=== PATIENT | male | born 1955 | race Caucasian/White ===

== ENCOUNTER 2023-05-24 06:03 | Inpatient (IN) | payer MEDICARE ==
--- NOTE | 2023-05-24 06:38 | ED ---
SOB HPI - General Source: patient, RN notes reviewed Mode of arrival: ambulatory Limitations: no limitations - History of Present Illness MD Complaint: shortness of breath Onset/Timin -: week(s) <Bianca Montenegro - Last Filed: 05/24/23 06:38> <Fabian Viera - Last Filed: 05/24/23 10:41> - General Chief Complaint: Shortness of Breath Stated Complaint: Difficulty breathing Time Seen by Provider: 05/24/23 06:36 - History of Present Illness Initial Comments: This is a 68 year old male who presents to the emergency department for shortness of breath. Reports a history of COPD and states that this began about a week ago. Denies any chest pain. He notes that he has been under a lot of stress recently, and he just buried his twin yesterday. (Bianca Montenegro) This is a 68-year-old male who presents emergency department with past medical history significant for smoking. Patient states he has been diagnosed with COPD in the past. Patient comes in today because he states he's been having diff iculty breathing that happened last night one time it lasted about 10 minutes and finally settled down and felt better. Patient states in the middle the night he woke up very short of breath or difficulty 20 minutes to settle down and resolved. Patient states she's not had this issue in the past. Patient denies any chest pain. Patient denies any back pain. Patient states she does have some super pubic pressure which she states is new in the last 2 days. Patient denies any nausea vomiting diarrhea. Patient denies any fevers or chills. Patient denies any other symptoms at this time. (Fabian Viera) - Related Data Home Medications Medication Instructions Recorded Confirmed Albuterol Sulfate [Albuterol 1 - 2 puff PO RT-Q6H PRN 05/24/23 05/24/23 Sulfate Hfa] Ibuprofen [Motrin Ib] 1,200 - 1,600 mg PO BID PRN 05/24/23 05/24/23 Tamsulosin [Flomax] 0.4 mg PO DAILY PRN 05/24/23 05/24/23 Allergies Allergy/AdvReac Type Severity Reaction Status Date / Time No Known Allergies Allergy Verified 05/24/23 08:56 Review of Systems ROS Other: All systems not noted in ROS Statement are negative. <Bianca Montenegro - Last Filed: 05/24/23 06:38> ROS Other: All systems not noted in ROS Statement are negative. <Fabian Viera - Last Filed: 05/24/23 10:41> ROS Statement: Those systems with pertinent positive or pertinent negative responses have been documented in the HPI. Past Medical History Past Medical History: COPD History of Any Multi-Drug Resistant Organisms: None Reported Past Surgical History: No Surgical Hx Reported Past Psychological History: No Psychological Hx Reported Smoking Status: Current every day smoker Past Alcohol Use History: None Reported Past Drug Use History: None Reported <Bianca Montenegro - Last Filed: 05/24/23 06:38> General Exam Limitations: no limitations <Bianca Montenegro - Last Filed: 05/24/23 06:38> <Fabian Viera - Last Filed: 05/24/23 10:41> - General Exam Comments Initial Comments: Visual Physical Exam Vital signs reviewed General: Well-appearing, nontoxic, no acute distress. Head: Normocephalic, atraumatic Eyes: PERRLA, EOMI ENT: Airway patent Chest: Nonlabored breathing Skin: No visual rash, normal skin tone Neuro: Alert and oriented 3 Musculoskeletal: No gross abnormalities (Bianca Montenegro) GENERAL: Patient is well-developed and well-nourished. Patient is nontoxic and well- hydrated and is in no acute distress. ENT: Neck is soft and supple. No significant lymphadenopathy is noted. Oropharynx is clear. Moist mucous membranes. Neck has full range of motion without eliciting any pain. EYES: The sclera were anicteric and conjunctiva were pink and moist. Extraocular movements were intact and pupils were equal round and reactive to light. Eyelids were unremarkable. PULMONARY: Unlabored respirations. Good breath sounds bilaterally. No audible rales rhonchi or wheezing was noted. CARDIOVASCULAR: There is a regular rate and rhythm without any murmurs gallops or rubs. Femoral pulses are equal bilaterally ABDOMEN: Mild suprapubic fullness and tenderness SKIN: Skin is clear with no lesions or rashes and otherwise unremarkable. NEUROLOGIC: Patient is alert and oriented x3. Cranial nerves II through XII are grossly intact. Motor and sensory are also intact. Normal speech, volume and content. Symmetrical smile. MUSCULOSKELETAL: Normal extremities with adequate strength and full range of motion. No lower extremity swelling or edema. No calf tenderness. LYMPHATICS: No significant lymphadenopathy is noted PSYCHIATRIC: Normal psychiatric evaluation. (Fabian Viera) Course Vital Signs 05/24/23 05/24/23 06:16 09:03 Temperature 97.8 F Pulse Rate 95 Respiratory 20 20 Rate Blood Pressure 139/89 O2 Sat by Pulse 95 Oximetry Medical Decision Making <Bianca Montenegro - Last Filed: 05/24/23 06:38> - Lab Data Result diagrams: 05/24/23 06:27 05/24/23 06:27 <Fabian Viera - Last Filed: 05/24/23 10:41> - Medical Decision Making I performed the QuickNote portion of this chart. Signed Bianca Montenegro PA-C. (Bianca Montenegro) EKG is interpreted by myself EKG shows sinus tachycardia with multiple PVCs at 100 bpm TN interval 112 QRS is 115 QT interval 3492 QTC is 406. Patient's EKG shows no ST segment elevation or depression. Was pt. sent in by a medical professional or institution (IRENE Tompkins, NETWORK SECURITY OFFICER, urgent care, hospital, or senior care...) When possible be specific @ -[No] Did you speak to anyone other than the patient for history (EMS, parent, family, police, friend...)? What history was obtained from this source @ -[No] Did you review nursing and triage notes (agree or disagree)? Why? @ -[I reviewed and agree with nursing and triage notes] Were old charts reviewed (outside hosp., previous admission, EMS record, old E KG, old radiological studies, urgent care reports/EKG's, senior care records)? Report findings @ -No Differential Diagnosis (chest pain, altered mental status, abdominal pain women, abdominal pain men, vaginal bleeding, weakness, fever, dyspnea, syncope, heada aleshia, dizziness, GI bleed, back pain, seizure, CVA, palpatations, mental health, musculoskeletal)? @ -Differential Dyspnea: Coronary syndrome, arrhythmia, tamponade, asthma, COPD, pulmonary embolism, pneumonia, pneumothorax, pulmonary effusion, anaphylaxis, diabetic ketoacidosis, flailed chest, pulmonary contusion, diaphragmatic rupture, anemia, neuromuscular, this is not meant to be an all-inclusive list. EKG interpreted by me (3pts min.). @ -[As above] X-rays interpreted by me (1pt min.). @ -Chest x-ray shows COPD with some pulmonary edema CT interpreted by me (1pt min.). @ -[None done] U/S interpreted by me (1pt. min.). @ -[None done] What testing was considered but not performed or refused? (CT, X-rays, U/S, labs)? Why? @ -[None] What meds were considered but not given or refused? Why? @ -[None] Did you discuss the management of the patient with other professionals (professionals i.e. , PA, NETWORK SECURITY OFFICER, lab, RT, psych nurse, social work instructor, sweet potato disintegrator, teacher, infantry officer, shelter case manager)? Give summary @ -Jansen with Dr. Roman he agreed to admit the patient admitted the patient wrote admitting orders Was smoking cessation discussed for >3mins.? @ -[No] Was critical care preformed (if so, how long)? @ -[No] Were there social determinants of health that impacted care today? How? (Homelessness, low income, unemployed, alcoholism, drug addiction, transportation, low edu. Level, literacy, decrease access to med. care, half-way, rehab)? @ -[No] Was there de-escalation of care discussed even if they declined (Discuss DNR or withdrawal of care, Hospice)? DNR status @ -[No] What co-morbidities impacted this encounter? (DM, HTN, Smoking, COPD, CAD, Cancer, CVA, ARF, Chemo, Hep., AIDS, mental health diagnosis, sleep apnea, morbid obesity)? @ -[None] Was patient admitted / discharged? Hospital course, mention meds given and route, prescriptions, significant lab abnormalities, going to OR and other pertinent info. @ -Patient had pulmonary edema and occasional run of PVCs and because this was all new from the patient will be admitted to Dr. Roman with a consult to card iology . Patient was started on Lasix in the emergency department. Undiagnosed new problem with uncertain prognosis? @ -[No] Drug Therapy requiring intensive monitoring for toxicity (Heparin, Nitro, Insulin, Cardizem)? @ -[No] Were any procedures done? @ -[No] Diagnosis/symptom? @ -Acute pulmonary edema Acute, or Chronic, or Acute on Chronic? @ -Acute Uncomplicated (without systemic symptoms) or Complicated (systemic symptoms)? @ -Complicated Side effects of treatment? @ -[No] Exacerbation, Progression, or Severe Exacerbation? @ -[No] Poses a threat to life or bodily function? How? (Chest pain, [place], [place], pneumonia, PE, COPD, DKA, ARF, appy, cholecystitis, CVA, Diverticulitis, Homicidal, Suicidal, threat to staff... and all critical care pts) @ -Yes this can lead to hypoxia and underlying dysfunction (Fabian Viera) - Lab Data Lab Results 05/24/23 05/24/23 05/24/23 Range/Units 06:27 06:27 06:27 WBC 9.0 (3.8-10.6) k/uL RBC 3.57 L (4.30-5.90) m/uL Hgb 11.4 L (13.0-17.5) gm/dL Hct 34.2 L (39.0-53.0) % MCV 95.8 (80.0-100.0) fL MCH 31.9 (25.0-35.0) pg MCHC 33.3 (31.0-37.0) g/dL RDW 13.2 (11.5-15.5) % Plt Count 222 (150-450) k/uL MPV 8.2 Neutrophils % 80 % Lymphocytes % 12 % Monocytes % 5 % Eosinophils % 1 % Basophils % 0 % Neutrophils # 7.2 (1.3-7.7) k/uL Lymphocytes # 1.1 (1.0-4.8) k/uL Monocytes # 0.5 (0-1.0) k/uL Eosinophils # 0.1 (0-0.7) k/uL Basophils # 0.0 (0-0.2) k/uL PT 11.1 (10.0-12.5) sec INR 1.0 (<1.2) APTT 22.5 (22.0-30.0) sec Sodium 137 (137-145) mmol/L Potassium 3.8 (3.5-5.1) mmol/L Chloride 105 (98-107) mmol/L Carbon Dioxide 26 (22-30) mmol/L Anion Gap 6 mmol/L BUN 19 (9-20) mg/dL Creatinine 0.95 (0.66-1.25) mg/dL Est GFR (CKD-EPI)AfAm >90 (>60 ml/min/1.73 sqM) Est GFR (CKD-EPI)NonAf 83 (>60 ml/min/1.73 sqM) Glucose 111 H (74-99) mg/dL Plasma Lactic Acid Farhat (0.7-2.0) mmol/L Calcium 9.1 (8.4-10.2) mg/dL Total Bilirubin 0.6 (0.2-1.3) mg/dL AST 36 (17-59) U/L ALT 31 (4-49) U/L Alkaline Phosphatase 60 (38-126) U/L Troponin I (0.000-0.034) ng/mL NT-Pro-B Natriuret Pep pg/mL Total Protein 6.1 L (6.3-8.2) g/dL Albumin 3.6 (3.5-5.0) g/dL Urine Color Urine Appearance (Clear) Urine pH (5.0-8.0) Ur Specific [place] (1.001-1.035) Urine Protein (Negative) Urine Glucose (UA) (Negative) Urine Ketones (Negative) Urine Blood (Negative) Urine Nitrite (Negative) Urine Bilirubin (Negative) Urine Urobilinogen (<2.0) mg/dL Ur Leukocyte Esterase (Negative) Influenza Type A (PCR) (Not Detectd) Influenza Type B (PCR) (Not Detectd) RSV (PCR) (Not Detectd) SARS-CoV-2 (PCR) (Not Detectd) 05/24/23 05/24/23 05/24/23 Range/Units 06:27 06:27 06:27 WBC (3.8-10.6) k/uL RBC (4.30-5.90) m/uL Hgb (13.0-17.5) gm/dL Hct (39.0-53.0) % MCV (80.0-100.0) fL MCH (25.0-35.0) pg MCHC (31.0-37.0) g/dL RDW (11.5-15.5) % Plt Count (150-450) k/uL MPV Neutrophils % % Lymphocytes % % Monocytes % % Eosinophils % % Basophils % % Neutrophils # (1.3-7.7) k/uL Lymphocytes # (1.0-4.8) k/uL Monocytes # (0-1.0) k/uL Eosinophils # (0-0.7) k/uL Basophils # (0-0.2) k/uL PT (10.0-12.5) sec INR (<1.2) APTT (22.0-30.0) sec Sodium (137-145) mmol/L Potassium (3.5-5.1) mmol/L Chloride (98-107) mmol/L Carbon Dioxide (22-30) mmol/L Anion Gap mmol/L BUN (9-20) mg/dL Creatinine (0.66-1.25) mg/dL Est GFR (CKD-EPI)AfAm (>60 ml/min/1.73 sqM) Est GFR (CKD-EPI)NonAf (>60 ml/min/1.73 sqM) Glucose (74-99) mg/dL Plasma Lactic Acid Farhat 1.4 (0.7-2.0) mmol/L Calcium (8.4-10.2) mg/dL Total Bilirubin (0.2-1.3) mg/dL AST (17-59) U/L ALT (4-49) U/L Alkaline Phosphatase (38-126) U/L Troponin I 0.033 (0.000-0.034) ng/mL NT-Pro-B Natriuret Pep pg/mL Total Protein (6.3-8.2) g/dL Albumin (3.5-5.0) g/dL Urine Color Urine Appearance (Clear) Urine pH (5.0-8.0) Ur Specific [place] (1.001-1.035) Urine Protein (Negative) Urine Glucose (UA) (Negative) Urine Ketones (Negative) Urine Blood (Negative) Urine Nitrite (Negative) Urine Bilirubin (Negative) Urine Urobilinogen (<2.0) mg/dL Ur Leukocyte Esterase (Negative) Influenza Type A (PCR) Not Detected (Not Detectd) Influenza Type B (PCR) Not Detected (Not Detectd) RSV (PCR) Not Detected (Not Detectd) SARS-CoV-2 (PCR) Not Detected (Not Detectd) 05/24/23 05/24/23 Range/Units 06:27 09:01 WBC (3.8-10.6) k/uL RBC (4.30-5.90) m/uL Hgb (13.0-17.5) gm/dL Hct (39.0-53.0) % MCV (80.0-100.0) fL MCH (25.0-35.0) pg MCHC (31.0-37.0) g/dL RDW (11.5-15.5) % Plt Count (150-450) k/uL MPV Neutrophils % % Lymphocytes % % Monocytes % % Eosinophils % % Basophils % % Neutrophils # (1.3-7.7) k/uL Lymphocytes # (1.0-4.8) k/uL Monocytes # (0-1.0) k/uL Eosinophils # (0-0.7) k/uL Basophils # (0-0.2) k/uL PT (10.0-12.5) sec INR (<1.2) APTT (22.0-30.0) sec Sodium (137-145) mmol/L Potassium (3.5-5.1) mmol/L Chloride (98-107) mmol/L Carbon Dioxide (22-30) mmol/L Anion Gap mmol/L BUN (9-20) mg/dL Creatinine (0.66-1.25) mg/dL Est GFR (CKD-EPI)AfAm (>60 ml/min/1.73 sqM) Est GFR (CKD-EPI)NonAf (>60 ml/min/1.73 sqM) Glucose (74-99) mg/dL Plasma Lactic Acid [place] (0.7-2.0) mmol/L Calcium (8.4-10.2) mg/dL Total Bilirubin (0.2-1.3) mg/dL AST (17-59) U/L ALT (4-49) U/L Alkaline Phosphatase (38-126) U/L Troponin I (0.000-0.034) ng/mL NT-Pro-B Natriuret Pep 2540 pg/mL Total Protein (6.3-8.2) g/dL Albumin (3.5-5.0) g/dL Urine Color Colorless Urine Appearance Clear (Clear) Urine pH 6.0 (5.0-8.0) Ur Specific [place] 1.010 (1.001-1.035) Urine Protein Negative (Negative) Urine Glucose (UA) Negative (Negative) Urine Ketones Negative (Negative) Urine Blood Negative (Negative) Urine Nitrite Negative (Negative) Urine Bilirubin Negative (Negative) Urine Urobilinogen <2.0 (<2.0) mg/dL Ur Leukocyte Esterase Negative (Negative) Influenza Type A (PCR) (Not Detectd) Influenza Type B (PCR) (Not Detectd) RSV (PCR) (Not Detectd) SARS-CoV-2 (PCR) (Not Detectd) Disposition <Bianca Montenegro - Last Filed: 05/24/23 06:38> Time of Disposition: 10:41 <Fabian Viera - Last Filed: 05/24/23 10:41> Clinical Impression: Acute pulmonary edema Disposition: ADMITTED IP TO THIS HOSP Referrals: None,Stated [Primary Care Provider] - 1-2 days
[2023-05-24 06:46] LABS: Basophils % (A) 0 %; Eosinophils # (A) 0.1 k/uL (0-0.7); Eosinophils % (A) 1 %; HCT 34.2 % (39.0-53.0); HGB 11.4 gm/dL (13.0-17.5); Lymphocytes # (A) 1.1 k/uL (1.0-4.8); Lymphocytes % (A) 12 %; MCH 31.9 pg (25.0-35.0); MCHC 33.3 g/dL (31.0-37.0); MCV 95.8 fL (80.0-100.0); Mean Platelet Volume 8.2; Monocytes # (A) 0.5 k/uL (0-1.0); Monocytes % (A) 5 %; Neutrophils # (A) 7.2 k/uL (1.3-7.7); Neutrophils % (A) 80 %; Platelet Count 222 k/uL (150-450); RBC 3.57 m/uL (4.30-5.90); RDW 13.2 % (11.5-15.5)
[2023-05-24 07:05] LABS: ALT 31 U/L (4-49); AST 36 U/L (17-59); African American GFR (CKD) >90 (>60 ml/min/1.73 sqM); Albumin 3.6 g/dL (3.5-5.0); Alkaline Phosphatase 60 U/L (38-126); Anion Gap 6 mmol/L; Blood Urea Nitrogen 19 mg/dL (9-20); Calcium 9.1 mg/dL (8.4-10.2); Carbon Dioxide 26 mmol/L (22-30); Chloride 105 mmol/L (98-107); Glucose 111 mg/dL (74-99); Non-African American GFR(CKD) 83 (>60 ml/min/1.73 sqM); Partial Thromboplastin Time 22.5 sec (22.0-30.0); Potassium 3.8 mmol/L (3.5-5.1); Prothrombin Time 11.1 sec (10.0-12.5); Sodium 137 mmol/L (137-145); Total Bilirubin 0.6 mg/dL (0.2-1.3); Total Protein 6.1 g/dL (6.3-8.2)
--- NOTE | 2023-05-24 07:49 | XR ---
EXAMINATION TYPE: XR chest 2V DATE OF EXAM: 05/24/2023 COMPARISON: None HISTORY: 68 year-old male shortness of breath, difficulty breathing TECHNIQUE: PA and lateral views FINDINGS: Heart mildly enlarged. Diffuse interstitial density. Nely B lines noted at the periphery of the bra in base. Trace pleural effusion developing. No irena consolidation. Hyperinflation. IMPRESSION: COPD with superimposed CHF and early interstitial pulmonary edema. Trace effusions.
[2023-05-24] MEDS ORDERED: FUROSEMIDE 10 MG/ML 2 ML VIAL IV ONE (08:41)
[2023-05-24 10:00] LABS: Appearance,Urine Clear (Clear); Bilirubin,Urine Negative (Negative); Blood,Urine Negative (Negative); Color,Urine Colorless; Glucose,Urine (UA) Negative (Negative); Ketones,Urine Negative (Negative); Leukocyte Esterase,Urine Negative (Negative); Nitrite,Urine Negative (Negative); Protein,Urine Negative (Negative); Urobilinogen,Urine <2.0 mg/dL (<2.0)
[2023-05-24] MEDS ORDERED: NITROGLYCERIN OINT 1 INCH/GM PACKET TOPICAL STA (10:44)
[2023-05-24] MEDS: FUROSEMIDE 10 MG/ML 4 ML VIAL IV SCH ×2 (10:48→21:38)
[2023-05-24] MEDS: NITROGLYCERIN OINT 1 INCH/GM PACKET TOPICAL SCH ×3 (11:02→23:31)
[2023-05-24] MEDS ORDERED: TAMSULOSIN 0.4 MG CAP.ER.24H PO PRN (18:22)
[2023-05-24] MEDS ORDERED: HEPARIN SODIUM 1,000 UN/ML (10ML VL) IV PRN (21:16)
[2023-05-24] MEDS ORDERED: HEPARIN SODIUM 1,000 UN/ML (10ML VL) IV ONE (21:16)
[2023-05-24] MEDS ORDERED: DILTIAZEM DRIP BOLUS FROM BAG 1 MG SOLN IV ONE (21:30)
[2023-05-24] MEDS: DILTIAZEM 125 MG in SODIUM CHLORIDE 0.9% 100 ML IV SCH (21:37)
[2023-05-24] MEDS ORDERED: HEPARIN SOD,PORK IN 0.45% NACL 25,000 UNIT in 0.45% NACL 1 250ML.BAG IV SCH (22:00)
[2023-05-24] MEDS: IPRATROPIUM-ALBUTEROL 3 ML NEB INHALATION SCH (22:18)
--- NOTE | 2023-05-25 01:43 | CT ---
EXAM: CT Chest Without Intravenous Contrast CLINICAL HISTORY: ITS.REASON CT Reason: pleural effusion TECHNIQUE: Axial computed tomography images of the chest without intravenous contrast. CTDI is 23.32 mGy and DLP is 818.86 mGy-cm. This CT exam was performed using one or more of the following dose reduction techniques: automated exposure control, adjustment of the mA and/or kV according to patient size, and/or use of iterative reconstruction technique. COMPARISON: No relevant prior studies available. FINDINGS: Lungs: No mass. No consolidation. Minimal pulmonary edema. COPD. Pleural space: No pneumothorax. Mild to moderate bilateral effusion. Heart: Normal heart size. No pericardial effusion. Bones/joints: No acute fracture. Soft tissues: Unremarkable. Vasculature: Unremarkable. No thoracic aortic aneurysm. Lymph nodes: No enlarged lymph nodes. Mildly nodular liver. Multiple vascular calcifications in the kidneys. Trace ascites. IMPRESSION: Mild to moderate bilateral pleural effusions. Minimal pulmonary edema. COPD. Mildly nodular liver. Multiple vascular calcifications in the kidneys. Trace ascites.
--- NOTE | 2023-05-25 05:10 | HP ---
HISTORY AND PHYSICAL HISTORY OF PRESENT ILLNESS: This 68-year-old white male came to the ER for shortness of breath. We are going to work him up for COPD exacerbation, tracheobronchitis versus yesterday, had shortness of breath, cough, congestion over the past few days, difficulty breathing last night, woke up very short of breath, 20 minutes to slow down and resolve. Did not have any chest pain back pain. Denies any nausea, vomiting, or diarrhea. Denies any fever or chills. He is negative for COVID, negative for flu, negative for RSV. HOME MEDICATIONS: Include Flomax, albuterol, and Motrin. ALLERGIES: Negative. REVIEW OF SYSTEMS: A 14-point review of systems positive for shortness of breath, cough, congestion. PAST MEDICAL HISTORY: COPD. SOCIAL HISTORY: Current everyday smoker. PHYSICAL EXAMINATION: VITAL SIGNS: Reviewed. Blood pressure 139/89, pulse 95, respiratory rate 18 to 20, temperature 97.8. GENERAL: Well developed, well nourished, well hydrated, no acute distress. HEENT: Normocephalic, atraumatic. Pupils equal, round, reactive. LUNGS: Decreased breath sounds x4, scattered wheeze. ABDOMEN: Soft, nontender. HEART: Regular rate and rhythm. SKIN: Warm, dry, intact. NEUROLOGIC: Cranial nerves intact. PSYCH: Fair mood and affect. LABORATORY DATA: White count is 8, hemoglobin 11.4. Lymphs, adenopathy. EKG, sinus tachycardia, pulmonary edema, PVCs. Cardiology consult. Rule out COPD exacerbation tracheobronchitis, possible pneumonia, acute pulmonary edema secondary to possible CHF, acute on chronic anemia, hyperglycemia. PROGNOSIS: Guarded. Please see further orders. MMODL / IJN: [id number] /
[2023-05-25] MEDS: NITROGLYCERIN OINT 1 INCH/GM PACKET TOPICAL SCH ×4 (05:52→22:57)
[2023-05-25] MEDS: DILTIAZEM 125 MG in SODIUM CHLORIDE 0.9% 100 ML IV SCH (06:35)
[2023-05-25] MEDS: IPRATROPIUM-ALBUTEROL 3 ML NEB INHALATION SCH ×4 (09:01→21:13)
[2023-05-25] MEDS: APIXABAN 5 MG TAB PO SCH ×2 (09:19→21:02)
[2023-05-25] MEDS: METOPROLOL TARTRATE 50 MG TAB PO SCH ×2 (09:19→21:02)
[2023-05-25] MEDS: FUROSEMIDE 10 MG/ML 4 ML VIAL IV SCH ×2 (09:19→21:02)
[2023-05-25 11:49] LABS: Glucose,Whole Blood 113 mg/dL (70-110)
--- NOTE | 2023-05-25 12:39 | P.CNPUL ---
History of Present Illness Consult date: 05/25/23 Reason for consult: dyspnea, COPD, pleural effusion History of present illness: This is a 68-year-old male patient is a chronic smoker carries more than [id number] smoking history was also known to have COPD maintain albuterol HFA on outpatient basis. He also has BPH and abdominal aortic aneurysm. The patient comes into the hospital because of worsening shortness of breath. No chest pain. He was having exertional dyspnea and orthopnea. No major swelling lower extremities. No cough or sputum production. No hemoptysis or pleurisy. No palpitations. His blood work shows a white cell count of 9 with a hemoglobin of 11.4. Electrodes are all within normal limits. ProBNP level was 2540 and a troponin is were negative. UA was negative. Thyroid function test was negative. The viral panel was also negative. The chest x-ray showed COPDand CT angiogram was also done that showed no evidence of any pulmonary embolism. There was mild to moderate bilateral pleural effusion and evidence of interstitial edema. Also, the patient had trace ascites. He denies having history of alcoholism. Initial EKG was showing sinus tachycardia and subsequent EKG today this morning showed atrial fibrillation with rapid ventricular response with a heart rate of 110. This is a new onset atrial fibrillation. Echo cardiac or was done and there is also still pending for now. The patient was started on diuretics. He is also on DuoNeb updrafts. Is sitting up on a chair and is currently calm and comfortable on room air oxygen. Review of Systems Constitutional: Reports as per HPI Eyes: denies as per HPI, denies blurred vision, denies bulging eye, denies decreased vision, denies diplopia, denies discharge, denies dry eye, denies irritation, denies itching, denies pain, denies photophobia, denies loss of peripheral vision, denies loss of vision, denies tunnel vision/blind spots Ears: deny: decreased hearing, ear discharge, earache, tinnitus Ears, nose, mouth and throat: Reports as per HPI Breasts: absent: as per HPI, gynecomastia Cardiovascular: Reports decreased exercise tolerance, Reports dyspnea on exertion, Reports irregular heart beat, Reports orthopnea, Reports shortness of breath Respiratory: Reports as per HPI, Reports dyspnea Gastrointestinal: Reports as per HPI Genitourinary: Reports as per HPI Musculoskeletal: Reports as per HPI Musculoskeletal: absent: ankle pain, ankle stiffness, ankle swelling Integumentary: Reports as per HPI Neurological: Reports as per HPI Psychiatric: Reports as per HPI Endocrine: Reports as per HPI Hematologic/Lymphatic: Reports as per HPI Allergic/Immunologic: Reports as per HPI Past Medical History Past Medical History: COPD, Prostate Disorder Additional Past Medical History / Comment(s): AAA (4-5 cm) History of Any Multi-Drug Resistant Organisms: None Reported Past Surgical History: No Surgical Hx Reported Past Psychological History: No Psychological Hx Reported Smoking Status: Current every day smoker Past Alcohol Use History: None Reported Past Drug Use History: None Reported Medications and Allergies Home Medications Medication Instructions Recorded Confirmed Type Albuterol Sulfate [Albuterol 1 - 2 puff PO RT-Q6H PRN 05/24/23 05/24/23 History Sulfate Hfa] Ibuprofen [Motrin Ib] 1,200 - 1,600 mg PO BID PRN 05/24/23 05/24/23 History Tamsulosin [Flomax] 0.4 mg PO DAILY PRN 05/24/23 05/24/23 History Allergies Allergy/AdvReac Type Severity Reaction Status Date / Time No Known Allergies Allergy Verified 05/24/23 08:56 Physical Exam Vitals: Vital Signs Temp Pulse Pulse Pulse Resp BP BP 05/25/23 09:20 119 H 18 127/82 05/25/23 04:08 97.7 F 124 H 18 118/72 05/25/23 00:36 111 H 17 125/74 05/24/23 19:50 98.1 F 98 16 110/75 05/24/23 15:54 97.8 F 120 H 14 180/76 05/24/23 14:42 130 H 18 125/99 05/24/23 14:00 120 H 05/24/23 11:02 65 18 118/65 Pulse Ox 05/25/23 09:20 94 L 05/25/23 04:08 96 05/25/23 00:36 97 05/24/23 19:50 98 05/24/23 15:54 97 05/24/23 14:42 97 05/24/23 14:00 05/24/23 11:02 94 L Intake and Output 05/24/23 05/25/23 05/25/23 22:59 06:59 14:59 Intake Total 600 44.833 Balance 600 44.833 Intake: Intake, IV Titration 44.833 Amount Diltiazem 125 mg In 44.833 Sodium Chloride 0.9% 100 ml @ 5 MG/HR 5 mls/hr IV .Q24H [facility] Rx#:[id number] Oral 600 Other: # Voids 2 Weight 72.1 kg Results - Laboratory Findings CBC and BMP: 05/24/23 06:27 05/24/23 06:27 PT/INR, D-dimer PT 11.1 sec (10.0-12.5) 05/24/23 06:27 INR 1.0 (<1.2) 05/24/23 06:27 D-Dimer 2.16 mg/L FEU (<0.60) H 05/24/23 19:14 Abnormal lab findings: Abnormal Labs 05/24/23 05/24/23 05/24/23 06:27 06:27 19:14 RBC 3.57 L Hgb 11.4 L Hct 34.2 L D-Dimer 2.16 H Glucose 111 H Total Protein 6.1 L - Diagnostic Findings Chest x-ray: image reviewed CT scan - chest: image reviewed Assessment and Plan Plan: Acute decompensated CHF with small bilateral pleural effusion and secondary shortness of breath, awaiting further workup. Echocardiogram is pending and the patient is currently on diuretics with IV Lasix. ProBNP is elevated COPD, chronic yet inactive and stable New-onset atrial fibrillation fibrillation with rapid ventricular response, heart rate responded to metoprolol 50 mg twice a day. Shortness of breath secondary to above Small bilateral pleural effusions Chronic smoker Abdominal aortic aneurysm BPH Plan Echocardiogram to evaluate LV function Continue Lasix 40 mg every 12 hours Continue metoprolol 50 mg by mouth twice a day The patient was started on anticoagulation with Eliquis 5 mg 2 twice a day for none valvular A. fib May need further intervention regarding the abdominal aortic aneurysm and according to the patient is has been in the order of 4-5 cm in size Smoking cessation counseling Continue bronchodilators Outpatient PFT We'll continue to follow
--- NOTE | 2023-05-25 13:21 | CT ---
EXAMINATION TYPE: CT chest angio for PE DATE OF EXAM: 05/25/2023 COMPARISON: CT 05/24/2023 HISTORY: 68-year-old male elevated D dimer, shortness of breath, PE TECHNIQUE: Contiguous axial scanning of the chest performed with IV Contrast, patient injected with 7 0 mL of Isovue 370. Coronal and sagittal MIP reconstructions performed. CT DLP: 301.2 mGycm Automated exposure control for dose reduction was used. FINDINGS: The heart is normal size without pericardial effusion. No flattening of the interventricular septum. LAD and circumflex coronary artery calcifications are present. Borderline ectasia ascending aorta 3.6 cm. Conventional arch was a branching anatomy. Minimal atheros clerotic calcifications. Satisfactory opacification of the pulmonary total system with borderline enlargement of the 2.6 cm ma y reflect pulmonary arterial hypertension. However, no pulmonary embolus is identified. Some scattered prominent mediastinal lymph nodes measuring up to 1 cm likely reactive. Small right and trace left pleural effusions persist. Scattered septal lines. There is moderate emphy sematous change. Patchy opacity, likely atelectasis of the right base. No other consolidation seen. Visualized upper abdomen demonstrates partial visualization of underlying left renal calculi measurin g at least 4 mm in size. Prominent just to material within the stomach. Bones: Inferior and plate Schmorl's nodes lower thoracic spine. No osseous destructive process. IMPRESSION: 1. NO EVIDENCE FOR PULMONARY EMBOLUS. 2. Small right and trace left pleural effusions with scattered septal lines. Correlate for fluid over load state/mild CHF. 3. Background COPD with moderate emphysema. 4. Partially visualized left nephrolithiasis.
--- NOTE | 2023-05-25 13:36 | P.CRDCN ---
History of Present Illness Consult date: 05/25/23 Reason for Consult (text): Acute pulmonary edema History of present illness: History of present illness: This is a 68-year-old male with past medical history of COPD, peripheral vascular disease, aortic aneurysm being monitored, active tobacco use and dependence, chronic venous stasis wounds on legs and back. We have been asked to evaluate the patient for pulmonary edema. Patient presented to the hospital due to difficulty in breathing. Patient states he has had shortness of breath for 1- 1/2 days. He thought it was related to his COPD and he has been using his inhalers at home but did not seem to have improvement. He he also states that his neck is been sore and he has increased gas in his abdomen. He denies having any stents in his heart or periphery. He states he had a surgery on a vein in his left leg. Patient is an active smoker cut down to less than a pack per day. Last evening, on-call talent solutions manager was contacted regarding A. fib with RVR and patient was started on Cardizem bolus, drip and heparin drip. EKG sinus rhythm multifocal atrial tachycardia, nonspecific T-wave changes, or to atrial fibrillation 110 bpm Chest x-ray: COPD with superimposed CHF and early interstitial pulmonary edema. Trace effusions. CT of the chest revealed mild to moderate bilateral pleural effusions. Minimal pulmonary edema. COPD. Mildly nodular liver. Multiple vascular calcifications in the kidneys. Trace ascites. WBC 9, hemoglobin 11.4, platelet count 222. INR 1. D-dimer 2.16 electrolytes and renal function are normal. Blood sugar 111. A1c 5.9. Liver function tests are normal. Troponin negative 1. Pro-BMP 2540. Urinalysis negative. Influenza A, influenza B, RSV, Covid 19 not detected. Home cardiac medications: None Review Of Systems: At the time of my exam: CONSTITUTIONAL: Denies fever or chills. CARDIOVASCULAR: Denies chest pain, + shortness of breath, no orthopnea, PND or palpitations. RESPIRATORY: Denies cough. GASTROINTESTINAL: Denies abdominal pain, diarrhea, constipation, nausea or vomiting. MUSCULOSKELETAL: Denies myalgias. NEUROLOGIC: Denies numbness, tingling or weakness. ENDOCRINE: Denies fatigue, weight change, polydipsia or polyurina. GENITOURINARY: Denies burning, hematuria or urgency with micturation. HEMATOLOGIC: Denies history of anemia or bleeding. Physical examination: Gen: This is a 68-year-old male resting in chair appears to be in no acute distress. VS: reviewed HEENT: Head is atraumatic, normocephalic. Pupils equal, round. Sclerae is anicteric. NECK: Supple. + JVD. LUNGS: Decreased breath sounds bilaterally. No intercostal retractions. HEART: Irregular rate and rhythm. No murmur. ABDOMEN: Soft No tenderness. EXTREMITIES: No pedal edema. No calf tenderness. Venous stasis ulcers. NEUROLOGICAL: Patient is awake, alert and oriented x3. Assessment: Acute systolic heart failure New onset atrial fibrillation with RVR, paroxysmal Small bilateral pleural effusions COPD Tobacco use and dependence Abdominal aortic aneurysm Plan: Discontinue heparin drip in Cardizem drip Start patient on Lopressor 50 mg twice daily Start patient on eliquis 5 mg twice daily Obtain 2-D echocardiogram and Doppler study to assess cardiac structure and function Further recommendations to follow based upon clinical course Thank you kindly for this consultation. Nurse practitioner note has been reviewed, I agree with documented findings and plan of care. Patient was seen and examined. Past Medical History Past Medical History: COPD History of Any Multi-Drug Resistant Organisms: None Reported Past Surgical History: No Surgical Hx Reported Past Psychological History: No Psychological Hx Reported Smoking Status: Current every day smoker Past Alcohol Use History: None Reported Past Drug Use History: None Reported Medications and Allergies Home Medications Medication Instructions Recorded Confirmed Type Albuterol Sulfate [Albuterol 1 - 2 puff PO RT-Q6H PRN 05/24/23 05/24/23 History Sulfate Hfa] Ibuprofen [Motrin Ib] 1,200 - 1,600 mg PO BID PRN 05/24/23 05/24/23 History Tamsulosin [Flomax] 0.4 mg PO DAILY PRN 05/24/23 05/24/23 History Allergies Allergy/AdvReac Type Severity Reaction Status Date / Time No Known Allergies Allergy Verified 05/24/23 08:56 Physical Exam Vitals: Vital Signs Temp Pulse Pulse Pulse Resp BP BP 05/25/23 04:08 97.7 F 124 H 18 118/72 05/25/23 00:36 111 H 17 125/74 05/24/23 19:50 98.1 F 98 16 110/75 05/24/23 15:54 97.8 F 120 H 14 180/76 05/24/23 14:42 130 H 18 125/99 05/24/23 14:00 120 H 05/24/23 11:02 65 18 118/65 05/24/23 09:03 20 Pulse Ox 05/25/23 04:08 96 05/25/23 00:36 97 05/24/23 19:50 98 05/24/23 15:54 97 05/24/23 14:42 97 05/24/23 14:00 05/24/23 11:02 94 L 05/24/23 09:03 Intake and Output 05/24/23 05/25/23 05/25/23 22:59 06:59 14:59 Intake Total 600 44.833 Balance 600 44.833 Intake: Intake, IV Titration 44.833 Amount Diltiazem 125 mg In 44.833 Sodium Chloride 0.9% 100 ml @ 5 MG/HR 5 mls/hr IV .Q24H MARYANN Rx#:[id number] Oral 600 Other: # Voids 2 Weight 72.1 kg Results 05/24/23 06:27 05/24/23 06:27 Current Medications Generic Name Dose Route Start Last Admin Trade Name Freq PRN Reason Stop Dose Admin Albuterol/Ipratropium 3 ml 05/24/23 20:00 05/24/23 22:18 Ipratropium-Albuterol 3 Ml Neb INHALATION Not Given RT-QID MARYANN Furosemide 20 mg 05/24/23 10:45 05/24/23 21:38 Furosemide 10 Mg/Ml 4 Ml Vial IV 20 mg Q12H MARYANN Administration Heparin Sodium (Porcine) 0 unit 05/24/23 21:16 Heparin Sodium 1,000 Un/Ml (10ml Vl) IV PER PROTOCOL PRN Low PTT Protocol Diltiazem HCl 125 mg/ Sodium 125 mls @ 5 mls/hr 05/24/23 22:00 05/25/23 06:35 Chloride IV 5 mg/hr .Q24H MARYANN 5 mls/hr Administration 5 MG/HR Heparin Sodium/Sodium Chloride 250 mls @ 8.437 mls/hr 05/24/23 22:00 05/24/23 21:36 25,000 unit/ Sodium Chloride IV 12 units/kg/hr .Q24H MARYANN 8.437 mls/hr Administration Protocol 12 UNITS/KG/HR Nitroglycerin 1 inch 05/24/23 12:00 05/25/23 05:52 Nitroglycerin Oint 1 Inch/Gm Packet TOPICAL Not Given Q6HR [facility] Tamsulosin HCl 0.4 mg 05/24/23 18:22 Tamsulosin 0.4 Mg Cap.Er.24h PO DAILY PRN PROSTATE ISSUES Intake and Output 05/24/23 05/25/23 05/25/23 22:59 06:59 14:59 Intake Total 600 44.833 Balance 600 44.833 Intake: Intake, IV Titration 44.833 Amount Diltiazem 125 mg In 44.833 Sodium Chloride 0.9% 100 ml @ 5 MG/HR 5 mls/hr IV .Q24H [facility] Rx#:[id number] Oral 600 Other: # Voids 2 Weight 72.1 kg 05/24/23 06:27 05/24/23 06:27
[2023-05-25 16:59] LABS: Glucose,Whole Blood 113 mg/dL (70-110)
--- NOTE | 2023-05-25 17:19 | CA ---
Transthoracic Echo Report Name: Vaughn Baez Age: 68 Gender: M : 1955 Exam Date: 05/25/2023 08:52 Exam Location: [facility] Ht (in): 68 Wt (lb): 155 Ordering Physician: Vaughn Roman MD Attending/Referring Phys: Car Sealer Silvana Naylor [facility] Procedure CPT: Indications: chf Cardiac Hx: Technical Quality: Technically difficult study Contrast 1: Definity Total Dose (mL): 6 Contrast 2: Total Dose (mL): MEASUREMENTS (Male / Female) Normal Values 2D ECHO LV Diastolic Diameter PLAX 6.3 cm 4.2 - 5.9 / 3.9 - 5.3 cm LV Systolic Diameter PLAX 5.8 cm IVS Diastolic Thickness 1.0 cm 0.6 - 1.0 / 0.6 - 0.9 cm LVPW Diastolic Thickness 1.0 cm 0.6 - 1.0 / 0.6 - 0.9 cm LV Relative Wall Thickness 0.3 LVOT Diameter 2.1 cm LV Diastolic Volume MOD BP 199.8 cm??? 67 - 155 / 56 - 104 cm??? LV Systolic Volume MOD BP 155.0 cm??? 22 - 58 / 19 - 49 cm??? LV Ejection Fraction MOD BP 22.4 % >= 55 % LV Cardiac Index MOD BP 2799.9 cm???/min???m??? LV Diastolic Volume MOD 4C 193.1 cm??? LV Systolic Volume MOD 4C 161.1 cm??? LV Ejection Fraction MOD 4C 16.6 % LV Cardiac Index MOD 4C 2000.4 cm???/min???m??? LV Diastolic Length 4C 8.5 cm LV Systolic Length 4C 8.1 cm LV Diastolic Volume MOD 2C 196.2 cm??? LV Systolic Volume MOD 2C 146.4 cm??? LV Ejection Fraction MOD 2C 25.4 % LV Cardiac Index MOD 2C 3110.6 cm???/min???m??? LV Diastolic Length 2C 9.0 cm LV Systolic Length 2C 7.9 cm M-MODE Aortic Root Diameter MM 3.2 cm LA Systolic Diameter MM 3.9 cm LA Ao Ratio MM 1.2 AV Cusp Separation MM 2.3 cm DOPPLER AV Peak Velocity 82.7 cm/s AV Peak Gradient 2.7 mmHg AV Mean Velocity 67.8 cm/s AV Mean Gradient 1.9 mmHg AV Velocity Time Integral 12.5 cm LVOT Peak Velocity 69.0 cm/s LVOT Peak Gradient 1.9 mmHg LVOT Velocity Time Integral 11.3 cm LVOT Stroke Volume 40.0 cm??? LVOT Stroke Volume Index 21.8 ml/m??? LVOT Cardiac Index 2496.3 cm???/min???m??? AV Area Cont Eq vti 3.2 cm??? AV Area Cont Eq pk 3.0 cm??? MR Peak Velocity 441.4 cm/s MR Peak Gradient 77.9 mmHg Mitral E Point Velocity 78.3 cm/s MV Deceleration Time 88.7 ms LV E' Lateral Velocity 9.2 cm/s Mitral E to LV E' Lateral Ratio 8.5 LV E' Septal Velocity 6.5 cm/s Mitral E to LV E' Septal Ratio 12.0 TR Peak Velocity 253.1 cm/s TR Peak Gradient 25.6 mmHg Right Atrial Pressure 15.0 mmHg Pulmonary Artery Systolic Pressu 40.6 mmHg Right Ventricular Systolic Press 40.6 mmHg FINDINGS Left Ventricle Mildly increased left ventricular diastolic diameter. Left ventricular wall thickness at upper limits of normal. Moderately increased left ventricular diastolic volume. Severely increased left ventricular systolic volume. Severely decreased left ventricular ejection fraction. Left ventricular ejection fraction is estimated at 20-25%. Right Ventricle Mild right ventricular dilatation. Right Atrium Mild right atrial dilatation. Left Atrium Severe left atrial dilatation. Mitral Valve Mitral valve thickened. Moderate mitral regurgitation. Aortic Valve Trileaflet aortic valve. No aortic valve stenosis or regurgitation. Tricuspid Valve Structurally normal tricuspid valve. Mild tricuspid regurgitation. Pulmonic Valve Pulmonic valve not well visualized. Pericardium No pericardial effusion. Aorta Normal size aortic root. CONCLUSIONS Severe LV dysfunction Left atrial enlargement with hypermobile intact atrial septum Previewed by: Dr. Zac Dill MD (Electronically Signed) Final Date: 25 May 2023 17:18
[2023-05-26] MEDS: NITROGLYCERIN OINT 1 INCH/GM PACKET TOPICAL SCH ×4 (05:00→23:35)
[2023-05-26] MEDS: IPRATROPIUM-ALBUTEROL 3 ML NEB INHALATION SCH ×4 (07:58→20:44)
[2023-05-26] MEDS: FUROSEMIDE 10 MG/ML 4 ML VIAL IV SCH ×2 (08:43→20:25)
[2023-05-26] MEDS: APIXABAN 5 MG TAB PO SCH (08:43)
[2023-05-26] MEDS: METOPROLOL TARTRATE 50 MG TAB PO SCH ×2 (08:43→20:25)
[2023-05-26] MEDS ORDERED: ATORVASTATIN 80 MG TAB PO STA (12:21)
[2023-05-26] MEDS ORDERED: ASPIRIN 325 MG TAB PO STA (12:21)
[2023-05-26] MEDS ORDERED: NITROGLYCERIN SL TABS 0.4 MG TAB SUBLINGUAL PRN (12:21)
[2023-05-26] MEDS ORDERED: ALPRAZolam 0.5 MG TAB PO PRN (12:21)
[2023-05-26] MEDS ORDERED: ALPRAZolam 0.25 MG TAB PO PRN (12:21)
--- NOTE | 2023-05-26 12:28 | P.PN ---
Subjective Progress Note Date: 05/26/23 This is a 68-year-old male patient is a chronic smoker carries more than [id number] smoking history was also known to have COPD maintain albuterol HFA on outpatient basis. He also has BPH and abdominal aortic aneurysm. The patient comes into the hospital because of worsening shortness of breath. No chest pain. He was having exertional dyspnea and orthopnea. No major swelling lower extremities. No cough or sputum production. No hemoptysis or pleurisy. No palpitations. His blood work shows a white cell count of 9 with a hemoglobin of 11.4. Electrodes are all within normal limits. ProBNP level was 2540 and a troponin is were negative. UA was negative. Thyroid function test was negativ e. The viral panel was also negative. The chest x-ray showed COPDand CT angiogram was also done that showed no evidence of any pulmonary embolism. There was mild to moderate bilateral pleural effusion and evidence of interstitial edema. Also, the patient had trace ascites. He denies having hist ory of alcoholism. Initial EKG was showing sinus tachycardia and subsequent EKG today this morning showed atrial fibrillation with rapid ventricular response with a heart rate of 110. This is a new onset atrial fibrillation. Echo cardiac or was done and there is also still pending for now. The patient was started on diuretics. He is also on DuoNeb updrafts. Is sitting up on a chair and is currently calm and comfortable on room air oxygen. 05/26/2023, the patient is feeling better. No specific complaints. Less short of breath. He was admitted for COPD and CHF exacerbation. Predominant decompensated effect however CHF exacerbation. The patient also had bilateral pleural effusions. According to him was done and the patient was found to have systolic heart failure with an EF of around 20-25%. The patient on also subsequently found to be in atrial fibrillation fibrillation. Currently on IV heparin. The patient continues to diurese with IV Lasix. He is on Lasix 40 mg IV every 12 hours. He is on room air oxygen. No chest pain. No other new complaints otherwise for now. Objective - Vital Signs Vital signs: Vital Signs Temp 97.5 F L 05/26/23 08:45 Pulse 83 05/26/23 08:45 Resp 17 05/26/23 08:45 BP 117/69 05/26/23 08:45 Pulse Ox 93 L 05/26/23 08:45 FiO2 Intake & Output 05/25/23 05/26/23 05/26/23 18:59 06:59 18:59 Intake Total 720 118 Output Total 300 Balance 720 -300 118 Weight 72.1 kg 72.2 kg Intake: Oral 720 118 Output: Urine 300 Other: # Voids 2 - Exam Gen: This is a 68-year-old male resting in chair appears to be in no acute distress. VS: reviewed HEENT: Head is atraumatic, normocephalic. Pupils equal, round. Sclerae is anicteric. NECK: Supple. + JVD. LUNGS: Decreased breath sounds bilaterally. No intercostal retractions. HEART: Irregular rate and rhythm. No murmur. ABDOMEN: Soft No tenderness. EXTREMITIES: No pedal edema. No calf tenderness. Venous stasis ulcers. NEUROLOGICAL: Patient is awake, alert and oriented x3. - Labs CBC & Chem 7: 05/24/23 06:27 05/24/23 06:27 Labs: Abnormal Lab Results - Last 24 Hours (Table) 05/25/23 05/25/23 Range/Units 11:48 16:57 POC Glucose (mg/dL) 113 H 113 H (70-110) mg/dL Assessment and Plan Plan: Acute systolic heart failure with secondary exacerbation. The patient is an EF of around 20-25% Acute decompensated CHF with small bilateral pleural effusion and secondary shortness of breath, awaiting further workup. Echocardiogram was noted and the patient is currently on diuretics with IV Lasix. ProBNP is elevated, improving with diuretics COPD, chronic yet inactive and stable New-onset atrial fibrillation fibrillation with rapid ventricular response, heart rate responded to metoprolol 50 mg twice a day. The patient is also on IV heparin Shortness of breath secondary to above, improving Small bilateral pleural effusions Chronic smoker Abdominal aortic aneurysm BPH Plan Echocardiogram was noted Continue Lasix 40 mg every 12 hours Continue metoprolol 50 mg by mouth twice a day Continue IV heparin May need further intervention regarding the abdominal aortic aneurysm and according to the patient is has been in the order of 4-5 cm in size Decision for cardiac catheterization is to be made by cardiology Smoking cessation counseling Continue bronchodilators Outpatient PFT We'll continue to follow
--- NOTE | 2023-05-26 14:20 | P.PN ---
Subjective Progress Note Date: 05/26/23 Reason for Consult (text): Acute pulmonary edema History of present illness: History of present illness: This is a 68-year-old male with past medical history of COPD, peripheral vascular disease, aortic aneurysm being monitored, active tobacco use and dependence, chronic venous stasis wounds on legs and back. We have been asked to evaluate the patient for pulmonary edema. Patient presented to the hospital due to difficulty in breathing. Patient states he has had shortness of breath for 1- 1/2 days. He thought it was related to his COPD and he has been using his inhalers at home but did not seem to have improvement. He he also states that his neck is been sore and he has increased gas in his abdomen. He denies having any stents in his heart or periphery. He states he had a surgery on a vein in his left leg. Patient is an active smoker cut down to less than a pack per day. Last evening, on-call manager of data was contacted regarding A. fib with RVR and patient was started on Cardizem bolus, drip and heparin drip. EKG sinus rhythm multifocal atrial tachycardia, nonspecific T-wave changes, or to atrial fibrillation 110 bpm Chest x-ray: COPD with superimposed CHF and early interstitial pulmonary edema. Trace effusions. CT of the chest revealed mild to moderate bilateral pleural effusions. Minimal pulmonary edema. COPD. Mildly nodular liver. Multiple vascular calcifications in the kidneys. Trace ascites. WBC 9, hemoglobin 11.4, platelet count 222. INR 1. D-dimer 2.16 electrolytes and renal function are normal. Blood sugar 111. A1c 5.9. Liver function tests are normal. Troponin negative 1. Pro-BMP 2540. Urinalysis negative. Influenza A, influenza B, RSV, Covid 19 not detected. Home cardiac medications: None 05/26 Echocardiogram reveals EF 20-25%, moderate MR, mild TR. Yesterday, cardizem and heparin gtts were discontinued. Patient was started on Lopressor 50 mg twice daily and Eliquis 5 mg twice daily. Patient appears to be in a sinus arrhythmia possibly going in and out of atrial fibrillation. Patient will be started on IV Lasix 40 mg every 12 hours. Discussed with patient and need for cardiac cat heterization which he is in agreement to move forward with. Eliquis will be stopped. Blood pressure 117/69. TSH 1.85. Physical examination: Gen: This is a 68-year-old male resting in chair appears to be in no acute distress. VS: reviewed HEENT: Head is atraumatic, normocephalic. Pupils equal, round. Sclerae is anicteric. NECK: Supple. + JVD. LUNGS: Decreased breath sounds bilaterally. No intercostal retractions. HEART: Irregular rate and rhythm. No murmur. ABDOMEN: Soft No tenderness. EXTREMITIES: No pedal edema. No calf tenderness. Venous stasis ulcers. NEUROLOGICAL: Patient is awake, alert and oriented x3. Assessment: Acute systolic heart failure New onset atrial fibrillation with RVR, paroxysmal Small bilateral pleural effusions COPD Tobacco use and dependence Abdominal aortic aneurysm Plan: Continue patient on Lopressor 50 mg twice daily Hold Eliquis Schedule patient for cardiac catheterization tomorrow with Dr. Blackwell Further recommendations to follow based upon clinical course Nurse practitioner note has been reviewed, I agree with documented findings and plan of care. Patient was seen and examined. Objective - Vital Signs Vital signs: Vital Signs Temp 97.5 F L 05/26/23 08:45 Pulse 74 05/26/23 11:22 Resp 17 05/26/23 08:45 BP 117/69 05/26/23 08:45 Pulse Ox 93 L 05/26/23 08:45 FiO2 Intake & Output 05/25/23 05/26/23 05/26/23 18:59 06:59 18:59 Intake Total 720 118 Output Total 300 Balance 720 -300 118 Weight 72.1 kg 72.2 kg Intake: Oral 720 118 Output: Urine 300 Other: # Voids 2 - Labs CBC & Chem 7: 05/24/23 06:27 05/24/23 06:27 Labs: Abnormal Lab Results - Last 24 Hours (Table) 05/25/23 Range/Units 16:57 POC Glucose (mg/dL) 113 H (70-110) mg/dL
--- NOTE | 2023-05-27 00:49 | PN ---
PROGRESS NOTE DATE OF SERVICE: 05/25/2023 SUBJECTIVE: The patient has probable sleep apnea, atypical chest pain, shortness of breath, set for heart catheterization tomorrow. Discussed his findings with him. He had elevated D- dimer, negative for PE. TSH is normal. Sugars are mid 100s. Hemoglobin is 11.4, glucose is mid 100s, BNP is 25 to 40, heart catheterization, atypical chest pain. Wait for Cardiology, Pulmonary to see him and clear him for discharge to follow up after heart catheterization. He has atrial fibrillation. He is on PEG for diastolic heart failure, acute systolic heart failure, new-onset atrial fibrillation, small bilateral pleural perfusion, COPD, nicotine addiction, abdominal aortic aneurysm, Lopressor 50 b.i.d. Hold his Eliquis, heart catheterization tonight tomorrow. Prognosis guarded. MMODL / IJN: [id number] /
[2023-05-27] MEDS: NITROGLYCERIN OINT 1 INCH/GM PACKET TOPICAL SCH ×2 (05:52→14:52)
[2023-05-27] MEDS: METOPROLOL TARTRATE 50 MG TAB PO SCH ×2 (05:52→20:11)
[2023-05-27] MEDS: IPRATROPIUM-ALBUTEROL 3 ML NEB INHALATION SCH ×4 (06:12→19:25)
[2023-05-27] MEDS ORDERED: HEPARIN SODIUM,PORCINE 10,000 UNIT in SODIUM CHLORIDE 0.9% 1,000 ML IRRIGATION PRN (07:00)
[2023-05-27] MEDS ORDERED: HEPARIN SODIUM,PORCINE (1 ML) 2,500 UNIT in SODIUM CHLORIDE 0.9% 250 ML IRRIGATION PRN (07:00)
[2023-05-27 08:39] LABS: Basophils % (A) 1 %; Eosinophils # (A) 0.2 k/uL (0-0.7); Eosinophils % (A) 2 %; HCT 36.1 % (39.0-53.0); HGB 12.2 gm/dL (13.0-17.5); Lymphocytes # (A) 1.5 k/uL (1.0-4.8); Lymphocytes % (A) 18 %; MCH 31.7 pg (25.0-35.0); MCHC 33.7 g/dL (31.0-37.0); MCV 94.2 fL (80.0-100.0); Mean Platelet Volume 8.5; Monocytes # (A) 0.5 k/uL (0-1.0); Monocytes % (A) 6 %; Neutrophils # (A) 6.2 k/uL (1.3-7.7); Neutrophils % (A) 73 %; Platelet Count 241 k/uL (150-450); RBC 3.83 m/uL (4.30-5.90); RDW 13.4 % (11.5-15.5); WBC 8.5 k/uL (3.8-10.6)
[2023-05-27 09:05] LABS: African American GFR (CKD) 80 (>60 ml/min/1.73 sqM); Anion Gap 7 mmol/L; Blood Urea Nitrogen 24 mg/dL (9-20); Calcium 8.6 mg/dL (8.4-10.2); Carbon Dioxide 29 mmol/L (22-30); Chloride 101 mmol/L (98-107); Glucose 103 mg/dL (74-99); Magnesium 1.7 mg/dL (1.6-2.3); Non-African American GFR(CKD) 69 (>60 ml/min/1.73 sqM); Potassium 3.8 mmol/L (3.5-5.1); Sodium 137 mmol/L (137-145)
[2023-05-27] MEDS ORDERED: VERAPAMIL 2.5 MG/ML 2 ML AMP ONE (13:15)
[2023-05-27] MEDS ORDERED: LIDOCAINE 1% INJ 10MG/ML (20 ML MDV) ONE (13:15)
[2023-05-27] MEDS ORDERED: MIDAZOLAM 2 MG/2 ML VIAL IVP ONE (13:40)
[2023-05-27] MEDS ORDERED: fentaNYL (PF) 50 MCG/ML 2 ML AMP ONE (13:40)
[2023-05-27] MEDS: fentaNYL (PF) 50 MCG/ML 2 ML AMP IVP ONE ×2 (13:40→15:00)
[2023-05-27] MEDS ORDERED: LIDOCAINE 1% INJ 10MG/ML (20 ML MDV) SQ ONE (13:40)
[2023-05-27] MEDS ORDERED: VERAPAMIL SYRINGE (5 MG/10 ML) INTRAARTER ONE (13:48)
[2023-05-27] MEDS ORDERED: HEPARIN SODIUM 1,000 UN/ML (10ML VL) IVP ONE ×2 (13:49→14:19)
[2023-05-27] MEDS ORDERED: CLOPIDOGREL 75 MG TAB ONE (14:16)
[2023-05-27] MEDS ORDERED: CLOPIDOGREL 75 MG TAB PO ONE (14:19)
[2023-05-27] MEDS: FUROSEMIDE 10 MG/ML 4 ML VIAL IV SCH (14:53)
--- NOTE | 2023-05-27 14:55 | P.PN ---
Subjective Progress Note Date: 05/27/23 This is a 68-year-old male patient is a chronic smoker carries more than [id number] smoking history was also known to have COPD maintain albuterol HFA on outpatient basis. He also has BPH and abdominal aortic aneurysm. The patient comes into the hospital because of worsening shortness of breath. No chest pain. He was having exertional dyspnea and orthopnea. No major swelling lower extremities. No cough or sputum production. No hemoptysis or pleurisy. No palpitations. His blood work shows a white cell count of 9 with a hemoglobin of 11.4. Electrodes are all within normal limits. ProBNP level was 2540 and a troponin is were negative. UA was negative. Thyroid function test was negativ e. The viral panel was also negative. The chest x-ray showed COPDand CT angiogram was also done that showed no evidence of any pulmonary embolism. There was mild to moderate bilateral pleural effusion and evidence of interstitial edema. Also, the patient had trace ascites. He denies having hist ory of alcoholism. Initial EKG was showing sinus tachycardia and subsequent EKG today this morning showed atrial fibrillation with rapid ventricular response with a heart rate of 110. This is a new onset atrial fibrillation. Echo cardiac or was done and there is also still pending for now. The patient was started on diuretics. He is also on DuoNeb updrafts. Is sitting up on a chair and is currently calm and comfortable on room air oxygen. 05/26/2023, the patient is feeling better. No specific complaints. Less short of breath. He was admitted for COPD and CHF exacerbation. Predominant decompensated effect however CHF exacerbation. The patient also had bilateral pleural effusions. According to him was done and the patient was found to have systolic heart failure with an EF of around 20-25%. The patient on also subsequently found to be in atrial fibrillation fibrillation. Currently on IV heparin. The patient continues to diurese with IV Lasix. He is on Lasix 40 mg IV every 12 hours. He is on room air oxygen. No chest pain. No other new complaints otherwise for now. On 05/27/2023, the patient is no specific complaints. He history of any chest pain. Shortness of breath is also improved. The plan is to proceed with a cardiac catheterization today. The patient remains on IV heparin. He is on IV Lasix. The BUN is at 24 with a creatinine of 1.1. The white cell count of 8.5 with a hemoglobin of 12.2. The patient is currently on room air oxygen with a pulse ox of 94%. The patient is afebrile. As mentioned, the patient was found to have severe cardiomyopathy with an ejection fraction of 20-25%. His cardiac rhythm is still itchy fibrillation. Objective - Vital Signs Vital signs: Vital Signs Temp 98.2 F 05/27/23 08:00 Pulse 75 05/27/23 11:35 Resp 18 05/27/23 08:00 BP 112/69 05/27/23 08:00 Pulse Ox 94 L 05/27/23 08:00 FiO2 Intake & Output 05/26/23 05/27/23 05/27/23 18:59 06:59 18:59 Intake Total 568 Output Total 2420 Balance 568 -2420 Weight 67.8 kg Intake: Oral 568 Output: Urine 2420 - Exam Gen: This is a 68-year-old male resting in chair appears to be in no acute di stress. VS: reviewed HEENT: Head is atraumatic, normocephalic. Pupils equal, round. Sclerae is anict ayniv. NECK: Supple. + JVD. LUNGS: Decreased breath sounds bilaterally. No intercostal retractions. HEART: Irregular rate and rhythm. No murmur. ABDOMEN: Soft No tenderness. EXTREMITIES: No pedal edema. No calf tenderness. Venous stasis ulcers. NEUROLOGICAL: Patient is awake, alert and oriented x3. - Labs CBC & Chem 7: 05/27/23 08:26 05/27/23 08:26 Labs: Abnormal Lab Results - Last 24 Hours (Table) 05/27/23 05/27/23 Range/Units 08:26 08:26 RBC 3.83 L (4.30-5.90) m/uL Hgb 12.2 L (13.0-17.5) gm/dL Hct 36.1 L (39.0-53.0) % BUN 24 H (9-20) mg/dL Glucose 103 H (74-99) mg/dL Assessment and Plan Plan: Acute systolic heart failure with secondary exacerbation. The patient is an EF of around 20-25% Acute decompensated CHF with small bilateral pleural effusion and secondary shortness of breath, awaiting further workup. Echocardiogram was noted and the patient is currently on diuretics with IV Lasix. ProBNP is elevated, improving with diuretics COPD, chronic yet inactive and stable New-onset atrial fibrillation fibrillation with rapid ventricular response, heart rate responded to metoprolol 50 mg twice a day. The patient is also on IV heparin Shortness of breath secondary to above, improving Small bilateral pleural effusions Chronic smoker Abdominal aortic aneurysm BPH Plan Clinically stable and the patient is going to undergo a cardiac catheterization today Echocardiogram was noted consistent with systolic heart failure with an ejection fraction of 20-25% Continue Lasix 40 mg every 12 hours for another 24 hours Continue metoprolol 50 mg by mouth twice a day Continue IV heparin May need further intervention regarding the abdominal aortic aneurysm and according to the patient is has been in the order of 4-5 cm in size Smoking cessation counseling Continue bronchodilators Outpatient PFT We'll continue to follow
[2023-05-27] MEDS ORDERED: IV FLUID CONTINUATION 700 ML IV ONE (15:00)
[2023-05-27] MEDS ORDERED: IOPAMIDOL-370 100ML BTL INJ ONE ×2 (15:00→15:01)
[2023-05-27] MEDS ORDERED: NITROGLYCERIN SL TABS 0.4 MG TAB SUBLINGUAL PRN (15:13)
[2023-05-27] MEDS ORDERED: ATROPINE SULFATE 0.1 MG/ML 10ML SYRINGE IV PRN (15:13)
[2023-05-27] MEDS ORDERED: RX INFO: IV CONTRAST WAS GIVEN 1 EACH MISC MISCELLANE PRN (15:13)
[2023-05-27] MEDS ORDERED: ZOLPIDEM 5 MG TAB PO PRN (15:13)
[2023-05-27] MEDS ORDERED: MAG HYDROX/AL HYDROX/SIMETH 30 ML CUP PO PRN (15:13)
[2023-05-27] MEDS ORDERED: SODIUM CHLORIDE 0.9% 1,000 ML in EMPTY BAG 1 BAG IV SCH (15:15)
--- NOTE | 2023-05-27 15:21 | P.CARDCATH ---
Date of Procedure: 05/27/23 Description of Procedure: PERCUTANEOUS TRANSLUMINAL CORONARY ANGIOPLASTY CLINICAL INFORMATION: The patient is a 68-year-old male who presented with symptoms of CHF, was found to have severe cardiomyopathy. He underwent cardiac catheterization by Dr Blackwell was found to have significant obstructive disease in volving the proximal left circumflex. Recommendations were made regarding angioplasty and stenting. The procedure as well as the risks and the complications were discussed with the patient who was in full understanding and agreement. PROCEDURE: A 6 Cambodian FL 3.5 guiding catheter was introduced into the system. After cannulating the left main, a 0.014 whisper J-wire was advanced across the lesion and positioned distally with the help catheter. There was inability to advance 0.014 BMW J-wire. Attempt to advance the super cross across the lesion were unsuccessful. That catheter was removed and a 1.5 x 12 mm Treck was advanced and inflation at 10 andre were done subsequently 2.5X 12 mm was advanced and 2 inflation at 8 andre were done. The guidewire was exchanged to the BMW wire. Attempt to advance a Graphdive umkumiut eye IVUS unsuccessful. Subsequently a 3.0 x 12 mm NC Treck balloon was advanced and inflation at 8 andre were done. Using a 6-Cambodian guide liner the IVUS catheter was advanced and images were obtained. Following that a 3.25 x 18 mm Xience lauro point stent was deployed. It was dilated at 16 andre. Repeat IVUS imaging was obtained and subsequently a 3.5 x 15 mm NC Treck was advanced and one inflation at 10 andre was done. After the last inflation, after appropriate wait, the balloon and the guidewire were withdrawn back into the guiding catheter. Images were obtained and repeated. Those images reveal stable successful stenting. At that point, the guiding catheter, the balloon, and guidewire were removed. The sheath was removed. Hemostasis was obtained with and deployment of a TR band. There were no immediate complications. The patient was returned to the room in stable condition. Of note, the patient received 5000 units of heparin as well as Plavix. His ACT was followed. There was no immediate complications. He had no significant EKG changes or chest discomfort with the inflations RESULTS: Successful stenting of the proximal left circumflex and a calcified segment with reduction of stenosis from 99 % to 0 %. RECOMMENDATIONS: The patient will continue dual antiplatelet treatment with aspirin and clopidogrel for 6 months in addition to aggressive coronary risks modifications, attempting to maintain LDL below 70 mg/dL. The guideline guided treatment for his cardiomyopathy will be initiated. The findings and recommendations were discussed with the patient and the family, they are in full understanding and agreement. Duration of sedation: 47 minutes
[2023-05-27] MEDS ORDERED: METOPROLOL TARTRATE 50 MG TAB PO STA (16:41)
[2023-05-27] MEDS: AMIODARONE 200 MG TAB PO SCH ×2 (16:56→20:11)
[2023-05-27] MEDS: FUROSEMIDE 20 MG TAB PO SCH (16:57)
--- NOTE | 2023-05-27 18:31 | P.CARDCATH ---
Date of Procedure: 05/27/23 Description of Procedure: DIAGNOSTIC CORONARY ANGIOGRAPHY and LEFT HEART CATH REPORT PROCEDURES PERFORMED: Left heart catheterization Selective coronary angiography Moderate conscious sedation 30 mins Ultrasound assisted Right radial access INDICATION: Patient presented to the hospital because of worsening shortness of breath and clinical diagnosis of congestive heart failure. His echocardiogram showed an EF of 20-25%, moderate mitral regurgitation. She has multiple risk factors for coronary artery disease which includes smoking. CONSENT: I have discussed the risks, benefits and alternative therapies for the above-mentioned procedure, sedation/analgesia and necessary blood product administration (if indicated, as they pertain to this patient). The patient has indicated understanding and acceptance of the risks and procedures discussed. Conscious Sedation: Patient's ECG, heart rate, blood pressure, pulse oximetry was monitored throughout the duration of procedure under my direct supervision. 2 mg Versed and 50 mg Fentanyl were used for induction of moderate conscious sedation. Total duration of moderate concious sedation 30 minutes. PROCEDURE: After explaining the risks, benefits and alternatives of the above mentioned procedures in detail to the patient, informed consent was obtained. Patient was taken to the catheterization lab, prepped and draped in usual sterile fashion using universal precuations. Barbow and sherman test were performed to confirm adequate perfusion to fingers. Ultrasound was used to identify the radial artery. 1% lidocaine was infiltrated over the right radial artery. A 6-Emirati sheath was placed and secured in the right radial artery using modified Seldinger technique. The sheath was flushed and 5 mg verapamil was administered intra-arterially. J tipped wire was advanced under fluoroscopic guidance. Once the wire tip reached aortic root 4000 units of IV heparin was given. Over the wire a tiger 5-Emirati diagnostic catheter was advanced. Wire was removed, catheter was flushed and manipulated under fluoroscopy to selectively engaged the left coronary ostium. Left coronary angioplasty was performed in different angiographic projections. This catheter was exchanged for a JR4 diagnostic catheter over the wire. The catheter was flushed and manipulated to cross the aortic valve. LV pressures were obtained. Pullback was performed across aortic valve and catheter was manipulated to selectively engage the right coronary ostium under fluoroscopic guidance. Right coronary angiography was performed in different angiographic projections. Catheter was removed over the wire. Radial sheath was flushed. The right radial sheath was removed and a TR band was placed with excellent patent hemostasis was achieved. The patient tolerated the procedure well. Patient was transported back to the post catheterization holding area in stable condition. Angiographic images were reviewed in detail. HEMODYNAMICS: Aortic Pressure: 119/63 mmHg. LV pressure: 114/10 mmHg. LVEDP 18 mmHg. SELECTIVE CORONARY ARTERIOGRAPHY: LEFT MAIN: The left main is very short. Essentially LAD and Lcx originate from separate ostium. LEFT ANTERIOR DESCENDING CORONARY ARTERY: LAD is a large caliber vessel which wraps around to the apex. Mid portion has mild luminal irregularities. It gives rise to diagonal branches which appears angiographically normal. LEFT CIRCUMFLEX CORONARY ARTERY: It is Co-dominant vessel. LCx is medium caliber. It gives rise to small OM1 branch. At the level of small OM 2 branch, there is a calcific 95% stenosis with KIANA 2 flow. There is OM 3 branch just distal to the obstruction which has KIANA 1 forward flow. It receives (left collaterals to fill retrogradely. Distantly OM continues to give a small AV groove branch and medium-size PL branch which bifurcates and appears angiographically normal RIGHT CORONARY ARTERY: Dominant vessel. The right coronary artery is needed in caliber. Mid RCA has mild luminal irregularities. It gives rise to a small PDA branch which appears angiographically normal. IMPRESSION: 95% calclic mid LCx disease Mild mid RCA disease Mild mid LAD disease Elevated LVEDP PLAN: Plan for mid LCx intervention with Dr Rodriguez further recs to follow. Performing Physician Salomón Blackwell MD
[2023-05-27] MEDS: lisinopriL 5 MG TAB PO SCH (20:11)
[2023-05-27] MEDS ORDERED: ATORVASTATIN 80 MG TAB PO SCH (21:00)
[2023-05-27] MEDS ORDERED: AMIODARONE 200 MG TAB PO SCH (21:00)
--- NOTE | 2023-05-28 03:56 | PN ---
PROGRESS NOTE SUBJECTIVE: He is on DuoNeb updrafts, COPD, pulmonary hypertension, PTCA of the right coronary artery, status post circumflex stent placed today, Lasix 20 b.i.d. for CHF, Lopressor, hypertension 50 b.i.d., Flomax for BPH. Prognosis guarded. OBJECTIVE: CARDIOVASCULAR: S1, S2. LUNGS: Scattered rhonchi, wheeze. GENERAL: Sitting up in chair, giving appropriate answers. VITAL SIGNS: O2 93-95 on room air, blood pressure , respiratory rate 18 to 16, temp 98.7. HEMATOLOGY: Negative Homans. ASSESSMENT: Chronic systolic and diastolic heart failure , status post circumflex PTCA, COPD, pulmonary hypertension, hypertension, nicotine addiction. Prognosis guarded. further orders. Prognosis guarded. Possibly go home tomorrow on Plavix and aspirin. Possible discharge tomorrow. MMODL / IJN: [id number] /
[2023-05-28] MEDS ORDERED: IPRATROPIUM-ALBUTEROL 3 ML NEB INHALATION STA (04:36)
[2023-05-28] MEDS: IPRATROPIUM-ALBUTEROL 3 ML NEB INHALATION SCH ×3 (08:24→15:04)
[2023-05-28 08:44] LABS: African American GFR (CKD) 68 (>60 ml/min/1.73 sqM); Anion Gap 7 mmol/L; Blood Urea Nitrogen 26 mg/dL (9-20); Calcium 8.7 mg/dL (8.4-10.2); Carbon Dioxide 26 mmol/L (22-30); Chloride 103 mmol/L (98-107); Glucose 120 mg/dL (74-99); Non-African American GFR(CKD) 59 (>60 ml/min/1.73 sqM); Potassium 4.1 mmol/L (3.5-5.1); Sodium 136 mmol/L (137-145)
[2023-05-28] MEDS: lisinopriL 5 MG TAB PO SCH (09:00)
[2023-05-28] MEDS ORDERED: DAPAGLIFLOZIN PROPANEDIOL 10 MG TABLET PO SCH (09:00)
[2023-05-28] MEDS: AMIODARONE 200 MG TAB PO SCH (09:00)
[2023-05-28] MEDS ORDERED: ASPIRIN 81 MG PO SCH (09:00)
[2023-05-28] MEDS ORDERED: CLOPIDOGREL 75 MG TAB PO SCH (09:00)
[2023-05-28] MEDS: METOPROLOL TARTRATE 50 MG TAB PO SCH (09:01)
[2023-05-28] MEDS: FUROSEMIDE 20 MG TAB PO SCH (09:01)
[2023-05-28 09:18] VITALS: TEMP 97.4
[2023-05-28 10:55] VITALS: BMI 23.1
[2023-05-28 11:44] VITALS: BP 101/55; RESP 16
--- NOTE | 2023-05-28 14:40 | P.PN ---
Subjective Progress Note Date: 05/28/23 This is a 68-year-old male patient is a chronic smoker carries more than [id number] smoking history was also known to have COPD maintain albuterol HFA on outpatient basis. He also has BPH and abdominal aortic aneurysm. The patient comes into the hospital because of worsening shortness of breath. No chest pain. He was having exertional dyspnea and orthopnea. No major swelling lower extremities. No cough or sputum production. No hemoptysis or pleurisy. No palpitations. His blood work shows a white cell count of 9 with a hemoglobin of 11.4. Electrodes are all within normal limits. ProBNP level was 2540 and a troponin is were negative. UA was negative. Thyroid function test was negativ e. The viral panel was also negative. The chest x-ray showed COPDand CT angiogram was also done that showed no evidence of any pulmonary embolism. There was mild to moderate bilateral pleural effusion and evidence of interstitial edema. Also, the patient had trace ascites. He denies having hist ory of alcoholism. Initial EKG was showing sinus tachycardia and subsequent EKG today this morning showed atrial fibrillation with rapid ventricular response with a heart rate of 110. This is a new onset atrial fibrillation. Echo cardiac or was done and there is also still pending for now. The patient was started on diuretics. He is also on DuoNeb updrafts. Is sitting up on a chair and is currently calm and comfortable on room air oxygen. 05/26/2023, the patient is feeling better. No specific complaints. Less short of breath. He was admitted for COPD and CHF exacerbation. Predominant decompensated effect however CHF exacerbation. The patient also had bilateral pleural effusions. According to him was done and the patient was found to have systolic heart failure with an EF of around 20-25%. The patient on also subsequently found to be in atrial fibrillation fibrillation. Currently on IV heparin. The patient continues to diurese with IV Lasix. He is on Lasix 40 mg IV every 12 hours. He is on room air oxygen. No chest pain. No other new complaints otherwise for now. On 05/27/2023, the patient is no specific complaints. He history of any chest pain. Shortness of breath is also improved. The plan is to proceed with a cardiac catheterization today. The patient remains on IV heparin. He is on IV Lasix. The BUN is at 24 with a creatinine of 1.1. The white cell count of 8.5 with a hemoglobin of 12.2. The patient is currently on room air oxygen with a pulse ox of 94%. The patient is afebrile. As mentioned, the patient was found to have severe cardiomyopathy with an ejection fraction of 20-25%. His cardiac rhythm is still itchy fibrillation. On today's evaluation of 05/28/2023, the patient is doing well. No chest pain. No shortness of breath. Cardiac catheterization was done and the patient was found to have stenosis of the circumflex. The patient underwent successful stenting of the proximal circumflex artery with reduction of the stenosis to 0%. The patient accordingly was placed on a combination of aspirin and Plavix. The patient is also on metoprolol 50 mg by mouth twice a day. The patient on Lipitor 80 mg by mouth daily. He is also on Zestril 5 mg by mouth twice a day and Farxiga. No other significant events overnight. The patient remains on room air oxygen. They BUN is at 26 with a creatinine of 1.2 and a sodium elevated at 136. Objective - Vital Signs Vital signs: Vital Signs Temp 97.4 F L 05/28/23 08:55 Pulse 89 05/28/23 08:55 Resp 18 05/28/23 08:55 BP 123/51 05/28/23 08:55 Pulse Ox 93 L 05/28/23 08:55 FiO2 Intake & Output 05/27/23 05/28/23 05/28/23 18:59 06:59 18:59 Intake Total 618 240 Output Total 500 575 Balance 118 -335 Weight 69.2 kg Intake: IV 500 Oral 118 240 Output: Urine 500 575 - Exam Gen: This is a 68-year-old male resting in chair appears to be in no acute distress. VS: reviewed HEENT: Head is atraumatic, normocephalic. Pupils equal, round. Sclerae is anicteric. NECK: Supple. + JVD. LUNGS: Decreased breath sounds bilaterally. No intercostal retractions. HEART: Irregular rate and rhythm. No murmur. ABDOMEN: Soft No tenderness. EXTREMITIES: No pedal edema. No calf tenderness. Venous stasis ulcers. NEUROLOGICAL: Patient is awake, alert and oriented x3. - Labs CBC & Chem 7: 05/27/23 08:26 05/28/23 07:48 Labs: Abnormal Lab Results - Last 24 Hours (Table) 05/28/23 Range/Units 07:48 Sodium 136 L (137-145) mmol/L BUN 26 H (9-20) mg/dL Creatinine 1.26 H (0.66-1.25) mg/dL Glucose 120 H (74-99) mg/dL Assessment and Plan Plan: Acute systolic heart failure with secondary exacerbation. The patient is an EF of around 20-25%, CHF was optimized and the patient is currently on Lasix 20 mg by mouth twice a day in addition to metoprolol and lisinopril. Acute decompensated CHF with small bilateral pleural effusion and secondary shortness of breath, improved Coronary artery disease and stenting of the circumflex and the patient is currently on accommodation of aspirin and Plavix, there is also mild disease in the RCA and LAD. COPD, chronic yet inactive and stable New-onset atrial fibrillation fibrillation with rapid ventricular response, recovered and the patient is currently on amiodarone 400 mg by mouth twice a day Shortness of breath secondary to above, improving Small bilateral pleural effusions Chronic smoker Abdominal aortic aneurysm BPH Plan Cardiac catheterization was completed an stenting of the circumflex was done Echocardiogram was noted consistent with systolic heart failure with an ejection fraction of 20-25% Continue Lasix 20 mg by mouth twice a day Continue metoprolol 50 mg by mouth twice a day Continue aspirin and Plavix Continue high dose statins Continue lisinopril and Farxiga May need further intervention regarding the abdominal aortic aneurysm and according to the patient is has been in the order of 4-5 cm in size Smoking cessation counseling Continue bronchodilators Outpatient PFT We'll continue to follow
--- NOTE | 2023-05-28 14:54 | P.PN ---
Subjective Progress Note Date: 05/28/23 Reason for Consult (text): Acute pulmonary edema History of present illness: History of present illness: This is a 68-year-old male with past medical history of COPD, peripheral vascular disease, aortic aneurysm being monitored, active tobacco use and dependence, chronic venous stasis wounds on legs and back. We have been asked to evaluate the patient for pulmonary edema. Patient presented to the hospital due to difficulty in breathing. Patient states he has had shortness of breath for 1- 1/2 days. He thought it was related to his COPD and he has been using his inhalers at home but did not seem to have improvement. He he also states that his neck is been sore and he has increased gas in his abdomen. He denies having any stents in his heart or periphery. He states he had a surgery on a vein in his left leg. Patient is an active smoker cut down to less than a pack per day. 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 fib with RVR and patient was started on Cardizem bolus, drip and heparin drip. EKG sinus rhythm multifocal atrial tachycardia, nonspecific T-wave changes, or to atrial fibrillation 110 bpm Chest x-ray: COPD with superimposed CHF and early interstitial pulmonary edema. Trace effusions. CT of the chest revealed mild to moderate bilateral pleural effusions. Minimal pulmonary edema. COPD. Mildly nodular liver. Multiple vascular calcifications in the kidneys. Trace ascites. WBC 9, hemoglobin 11.4, platelet count 222. INR 1. D-dimer 2.16 electrolytes and renal function are normal. Blood sugar 111. A1c 5.9. Liver function tests are normal. Troponin negative 1. Pro-BMP 2540. Urinalysis negative. Influenza A, influenza B, RSV, Covid 19 not detected. Home cardiac medications: None 05/26 Echocardiogram reveals EF 20-25%, moderate MR, mild TR. Yesterday, cardizem and heparin gtts were discontinued. Patient was started on Lopressor 50 mg twice daily and Eliquis 5 mg twice daily. Patient appears to be in a sinus arrhythmia possibly going in and out of atrial fibrillation. Patient will be started on IV Lasix 40 mg every 12 hours. Discussed with patient and need for cardiac cat heterization which he is in agreement to move forward with. Eliquis will be stopped. Blood pressure 117/69. TSH 1.85. 05/28 Yesterday, catheterization with Dr. Blackwell that found significant obstructive disease involving the proximal left circumflex and subsequently underwent stenting of that area with Dr. Rodriguez. Patient has no new concerns today. Blood pressure on the lower side 92/55, heart rate 72. Patient continues to be in atrial fibrillation. He started on amiodarone and Eliquis as well as Plavix. BUN 26 creatinine 1.26. Physical examination: Gen: This is a 68-year-old male resting in chair appears to be in no acute distress. VS: reviewed HEENT: Head is atraumatic, normocephalic. Pupils equal, round. Sclerae is anicteric. NECK: Supple. + JVD. LUNGS: Decreased breath sounds bilaterally. No intercostal retractions. HEART: Irregular rate and rhythm. No murmur. ABDOMEN: Soft No tenderness. EXTREMITIES: No pedal edema. No calf tenderness. Venous stasis ulcers. NEUROLOGICAL: Patient is awake, alert and oriented x3. Assessment: Acute systolic heart failure New onset atrial fibrillation with RVR, paroxysmal Small bilateral pleural effusions COPD Tobacco use and dependence Abdominal aortic aneurysm Plan: Patient is cleared for discharge by cardiology Patient to continue current cardiac medications. Nurse practitioner note has been reviewed, I agree with documented findings and plan of care. Patient was seen and examined. Objective - Vital Signs Vital signs: Vital Signs Temp 97.9 F 05/28/23 03:35 Pulse 72 05/28/23 08:36 Resp 18 05/28/23 03:35 BP 92/55 05/28/23 03:35 Pulse Ox 93 L 05/28/23 03:35 FiO2 Intake & Output 05/27/23 05/28/23 05/28/23 18:59 06:59 18:59 Intake Total 618 240 Output Total 500 575 Balance 118 -335 Weight 69.2 kg Intake: IV 500 Oral 118 240 Output: Urine 500 575 - Labs CBC & Chem 7: 05/27/23 08:26 05/28/23 07:48 Labs: Abnormal Lab Results - Last 24 Hours (Table) 05/27/23 05/28/23 Range/Units 08:26 07:48 Sodium 136 L (137-145) mmol/L BUN 24 H 26 H (9-20) mg/dL Creatinine 1.26 H (0.66-1.25) mg/dL Glucose 103 H 120 H (74-99) mg/dL
[2023-05-28 15:22] VITALS: PULSE 94
--- NOTE | 2023-05-28 19:08 | PN ---
PROGRESS NOTE SUBJECTIVE: The patient is doing better from a pulmonary standpoint, cardiac standpoint status post heart catheterization, still has atrial fibrillation. He is on Lipitor, Zestril, and Farxiga. He remains on room air. OBJECTIVE: VITAL SIGNS: Reviewed. CARDIOVASCULAR: S1, S2. LUNGS: Transmitted upper sounds. GI: Soft. HEMATOLOGY: Negative for Homans. Systolic heart failure secondary to exacerbation of decompensated CHF, bilateral pleural effusions, coronary disease status post stenting, COPD, new-onset atrial fibrillation and shortness of breath, nicotine addiction, abdominal aortic aneurysm, BPH, Lasix, metoprolol, aspirin, Plavix, statins, lisinopril for his AAA in an outpatient treatment. Continue current treatments prognosis guarded possible discharge home. MMODL / IJN: [id number] /
== END 2023-05-28 16:30 | disposition home or self-care (01) | DRG 321 ==
LOC: EC 06:03 → 3SCARD 10:42
PROVIDERS: ADMIT Family Medicine; ATTEND Family Medicine
PROC: 027034Z Dilation of Coronary Artery, One Artery with Drug-eluting Intraluminal Device, Percutaneous Approach (ICD-10-PCS; principal; 2023-05-27 10:15)
PROC: B240ZZ3 Ultrasonography of Single Coronary Artery, Intravascular (ICD-10-PCS; principal; 2023-05-27 10:15)
PROC: B2111ZZ Fluoroscopy of Multiple Coronary Arteries using Low Osmolar Contrast (ICD-10-PCS; 2023-05-27 10:15)
PROC: 4A023N7 Measurement of Cardiac Sampling and Pressure, Left Heart, Percutaneous Approach (ICD-10-PCS; 2023-05-27 10:15)
DX: I11.0 Hypertensive heart disease with heart failure (principal); I50.43 Acute on chronic combined systolic (congestive) and diastolic (congestive) heart failure; L97.919 Non-pressure chronic ulcer of unspecified part of right lower leg with unspecified severity; L97.929 Non-pressure chronic ulcer of unspecified part of left lower leg with unspecified severity; I42.9 Cardiomyopathy, unspecified; I27.20 Pulmonary hypertension, unspecified; I83.009 Varicose veins of unspecified lower extremity with ulcer of unspecified site; I48.0 Paroxysmal atrial fibrillation; I71.40 Abdominal aortic aneurysm, without rupture, unspecified; J44.9 Chronic obstructive pulmonary disease, unspecified; I73.9 Peripheral vascular disease, unspecified; Z28.310 Unvaccinated for COVID-19; I25.10 Atherosclerotic heart disease of native coronary artery without angina pectoris; I34.0 Nonrheumatic mitral (valve) insufficiency; I49.3 Ventricular premature depolarization; I25.84 Coronary atherosclerosis due to calcified coronary lesion; R73.9 Hyperglycemia, unspecified; N40.0 Benign prostatic hyperplasia without lower urinary tract symptoms; G47.30 Sleep apnea, unspecified; F17.210 Nicotine dependence, cigarettes, uncomplicated; Z71.6 Tobacco abuse counseling; Z59.6 Low income
CPT/HCPCS: 36415; 51798; 71046; 71250; 71275; 76937; 80048; 80053; 81003; 83036; 83605; 83735; 83880; 84443; 84484; 85025; 85379; 85610; 85730; 87636; 92978; 93005; 93306; 93458; 94640; 96374; 99285

== ENCOUNTER → 2023-06-16 | Outpatient (CLI) | payer MEDICARE ==
[2023-06-16 11:51] LABS: HCT 34.7 % (39.0-53.0); HGB 11.3 gm/dL (13.0-17.5); MCH 30.7 pg (25.0-35.0); MCHC 32.6 g/dL (31.0-37.0); MCV 94.3 fL (80.0-100.0); Mean Platelet Volume 7.9; Platelet Count 391 k/uL (150-450); RBC 3.68 m/uL (4.30-5.90); RDW 13.1 % (11.5-15.5); WBC 9.5 k/uL (3.8-10.6)
[2023-06-16 12:03] LABS: ALT 18 U/L (4-49); AST 24 U/L (17-59); African American GFR (CKD) 85 (>60 ml/min/1.73 sqM); Albumin 3.8 g/dL (3.5-5.0); Albumin/Globulin Ratio 1.3; Alkaline Phosphatase 67 U/L (38-126); Anion Gap 3 mmol/L; Blood Urea Nitrogen 14 mg/dL (9-20); Calcium 8.9 mg/dL (8.4-10.2); Carbon Dioxide 32 mmol/L (22-30); Chloride 101 mmol/L (98-107); Globulin 2.9 g/dL; Glucose 103 mg/dL (74-99); Non-African American GFR(CKD) 74 (>60 ml/min/1.73 sqM); Potassium 4.5 mmol/L (3.5-5.1); Sodium 136 mmol/L (137-145); Total Bilirubin 0.5 mg/dL (0.2-1.3); Total Protein 6.7 g/dL (6.3-8.2)
[2023-06-16 16:09] LABS: Chol/HDL Ratio 2.83 Ratio; LDL Cholesterol,Calculated 63.9 mg/dL (0.0-131.0)
--- NOTE | 2023-06-17 10:54 | CT ---
EXAMINATION TYPE: CT angio thor/abd CT DLP: 597.9 mGycm, Automated exposure control for dose reduction was used. DATE OF EXAM: 06/17/2023 10:21 AM COMPARISON: 05/25/2023.. CLINICAL INDICATION:Male, 68 years old with history of I71.9 AORTIC ANEURYSM OF UNSPECIFIED SITE; PHH , aneurysm TECHNIQUE: Multiple axial CT images of the chest, abdomen, and pelvis were obtained prior and to the administration of IV contrast. 3-D reformats and maximum intensity projection format were performed o n a separate workstation. Contrast used:100 mL of Isovue 370 without and with IV Contrast, Oral contrast used: FINDINGS: ARTERIAL VASCULATURE: The thoracic aorta is normal in course and caliber. There is no evidence of aor tic dissection, aneurysm or acute aortic injury. No evidence for intramural hematoma. Great arch vess els patent and normal in course and caliber. No aneurysmal dilation of the thoracic aorta. The abdominal aorta demonstrates atherosclerotic plaquing. The origins of the abdominal aorta are pat ent including the celiac axis, the superior mesenteric artery and the one right and 2 left renal sun mary grace. The inferior mesenteric artery is patent. Infrarenal abdominal aortic fusiform aneurysm distally measuring up to 6. 2 x 4.9 cm. And extends 7.6 cm in length. At least 2 areas one on series 17 image 139 and one on series 17 image 128 of more foc al fingerlike projections extending from the aneurysmal dilation. These are not opacified with contra st and appear likely a thrombus within them largest inferiorly and more right of midline measuring 18 x 17 mm and the smaller left of midline more superiorly measuring 10 x 7 mm.. Visualized PULMONARY ARTERIAL VASCULATURE: Normal caliber. No evidence of filling defect to suggest pulmonary em bolus. VENOUS SYSTEM: Unremarkable. Lungs/pleura: Centrilobular emphysema changes are seen throughout the lungs. No evidence focal consol idation, pneumothorax or pleural effusion.1 Heart: Heart is mildly enlarged for size. There is moderate coronary artery atherosclerosis. Mediastinum: No gross evidence of adenopathy. Lower Neck: No significant findings. Abdomen: Liver: Unremarkable. Gallbladder and Bile ducts: Gallstone in the gallbladder lumen. Pancreas: Unremarkable. Spleen: Unremarkable. Adrenal glands: Unremarkable. Kidneys and Ureters: Bilateral nonobstructing renal calculi. No evidence for hydronephrosis. Stomach and Bowel: Unremarkable. No evidence of bowel obstruction. Peritoneum: No evidence of pneumoperitoneum, free fluid, or adenopathy. Musculoskeletal: The osseous structures appear intact. Multilevel degeneration changes throughout the spine. Lymph nodes: No evidence of lymphadenopathy. Abdominal wall/soft tissues: Unremarkable. IMPRESSION: 1. Abdominal aortic fusiform aneurysmal dilation measuring up to 6.2 x 4.8 cm and extends up to 7.6 cm in length. There are 2 fingerlike projections which appear thrombosed possibly representing thromb osed penetrating atherosclerotic ulcers. Vascular surgical consultation recommended. 2. No evidence for thoracic aortic dissection, pulmonary embolus or thoracic aortic aneurysm. 3. Bilateral nonobstructing renal calculi. 4. Cholelithiasis. 5. Mild emphysema.
== END | disposition home or self-care (01) ==
LOC: RADCTMAIN 11:11
PROVIDERS: ATTEND Student in an Organized Health Care Education/Training Program
DX: I71.9 Aortic aneurysm of unspecified site, without rupture (principal); J45.909 Unspecified asthma, uncomplicated; K80.20 Calculus of gallbladder without cholecystitis without obstruction; N20.0 Calculus of kidney; I71.40 Abdominal aortic aneurysm, without rupture, unspecified; I71.20 Thoracic aortic aneurysm, without rupture, unspecified; E11.9 Type 2 diabetes mellitus without complications; I12.9 Hypertensive chronic kidney disease with stage 1 through stage 4 chronic kidney disease, or unspecified chronic kidney disease; D64.9 Anemia, unspecified
CPT/HCPCS: 80061; 80053; 84443; 85027; 83036; 71275; 74175; 36415; Q9967

== ENCOUNTER → 2024-09-26 | Outpatient (CLI) | payer MEDICARE ==
[2024-09-26 12:54] LABS: African American GFR (CKD) 43 (>60 ml/min/1.73 sqM); Blood Urea Nitrogen 28 mg/dL (9-20); Non-African American GFR(CKD) 37 (>60 ml/min/1.73 sqM)
--- NOTE | 2024-09-26 15:40 | CT ---
CTA abdomen and pelvis HISTORY: Abdominal aortic aneurysm. COMPARISON: CTA thorax and abdomen dated 06/16/2023 TECHNIQUE: Multiple axial images are obtained through the abdomen and pelvis before and after the une ventful administration of nonionic IV contrast material. 3-D postprocessing was performed. FINDINGS: The lung bases are clear. On the pre-IV contrast images, there is a stable gallstone. There are stable multiple less than 3 mm nonobstructing bilateral renal calcifications. There is a 5.0 x 5.0 cm infrarenal abdominal aortic aneurysm with extensive mural thrombus. There are 2 stable focal bulges in the anterior wall of the aneurysm indicating possible thrombosed ulcers. Th ere is no retroperitoneal adenopathy or hemorrhage. There is no solid renal mass. The bowel loops are normal in caliber and there is no dilatation, inflammation or obstruction. There is no free intraperitoneal air or fluid. There is moderate prostatic hypertrophy with a focal calcification but no pelvic adenopathy or mass There is moderate multilevel degenerative disc disease throughout the lumbar spine but no focal osseo us lesion. IMPRESSION: 1. Stable 5.0 x 5.0 cm infrarenal abdominal aortic aneurysm with possible thrombosed ulcers as descri bed above. 2. Cholelithiasis 3. Stable nonobstructing nephrocalcinosis 4. Stable moderate prostatic hypertrophy. [facility], , 09/26/2024 3:37 PM
== END | disposition home or self-care (01) ==
LOC: RADCTMAIN 12:13
PROVIDERS: ATTEND Surgery
DX: I71.43 Infrarenal abdominal aortic aneurysm, without rupture (principal); K80.20 Calculus of gallbladder without cholecystitis without obstruction; N40.0 Benign prostatic hyperplasia without lower urinary tract symptoms; N29 Other disorders of kidney and ureter in diseases classified elsewhere
CPT/HCPCS: 82565; 84520; 36415; 74174; Q9967

== ENCOUNTER → 2024-11-15 | Outpatient (CLI) | payer MEDICARE ==
[2024-11-15 12:33] LABS: African American GFR (CKD) 60 (>60 ml/min/1.73 sqM); Blood Urea Nitrogen 20 mg/dL (9-20); Non-African American GFR(CKD) 52 (>60 ml/min/1.73 sqM)
--- NOTE | 2024-11-15 15:09 | CT ---
CTA abdomen and pelvis. HISTORY: AAA. COMPARISON: 09/26/2024. TECHNIQUE: Multiple axial images are obtained through the abdomen and pelvis before and after the adm inistration of IV contrast. The exam was performed according to department CTA protocol. FINDINGS: Visualized lung bases are clear. There has been interval placement of a aorta by iliac stent graft. The lower [place] 5 cm aneurysm with 2 an terior thrombosed ulcer is stable. There is no evidence of aneurysm leakage. There is no retroperiton eal adenopathy or hemorrhage. There is stable cholelithiasis with a single large gallstone. There are stable multiple nonobstructing renal calcifications the largest of which is 4.5 mm calcific ation in the mid left kidney. There is no solid renal mass or hydronephrosis. There is no focal mass or organomegaly involving the liver, pancreas, spleen or adrenal glands. The bowel loops are normal in caliber and no dilatation or obstruction. There is no inflammation with in the abdomen or pelvis. There is no free intraperineal air or fluid. There is moderate to marked prostatic hypertrophy. There are no focal osseous lesions. IMPRESSION: 1.EVAR without evidence of aneurysm leak. Stable lower [place] aneurysm. 2. Stable nonobstructive bilateral nephrocalcinosis. 3. Stable cholelithiasis. 4. Stable moderate to marked prostatic hypertrophy [facility], , 11/15/2024 3:07 PM
== END | disposition home or self-care (01) ==
LOC: RADCTMAIN 11:42
PROVIDERS: ATTEND Surgery
DX: I71.43 Infrarenal abdominal aortic aneurysm, without rupture (principal); N29 Other disorders of kidney and ureter in diseases classified elsewhere; E83.59 Other disorders of calcium metabolism; N40.0 Benign prostatic hyperplasia without lower urinary tract symptoms; K80.20 Calculus of gallbladder without cholecystitis without obstruction
CPT/HCPCS: 82565; 84520; 36415; 74174; Q9967